=== PATIENT | female | born 1950 | race Caucasian/White ===

== ENCOUNTER 2022-03-28 15:45 | Emergency (ER) | payer MEDICARE, OTHER ==
[~2022-03-28] VITALS: Ht 172.7 cm; Wt 90.7 kg
[~2022-03-28 15:45] MED LIST: ATOR20TA PO; METO-357 PO; OMEP20CA15 PO; PREG300C PO
--- NOTE | 2022-03-28 16:10 | NUR ---
TO ER BED 9. BIB SON W/ COMPLAINT OF LOW BACK PAIN RATED 10/10, NON-RADIATING. PER SON, PATIENT TOOK VICODIN IN THE MORNING AND CURRENTLY HAS LIDOCAINE PATCH ON LOWER BACK.
--- NOTE | 2022-03-28 16:15 | NUR ---
DR. BINGHAM AT BEDSIDE W/ PATIENT.
[2022-03-28] MEDS ORDERED: CYCLOBENZAPRINE 10 MG TABLET ONE (16:26)
[2022-03-28] MEDS ORDERED: KETOROLAC TROMETHAMINE 15 MG/ML VIAL ONE (16:26)
[2022-03-28] MEDS ORDERED: CYCLOBENZAPRINE 10 MG TABLET PO ONE (16:30)
[2022-03-28] MEDS ORDERED: KETOROLAC TROMETHAMINE INJ 30 MG/ML VIAL IM ONE (16:30)
[2022-03-28] MEDS ORDERED: CARI250T PO ×2 (16:41→16:58)
[2022-03-28] MEDS ORDERED: IBUP-1955 PO ×2 (16:41→16:58)
[2022-03-28] MEDS ORDERED: METH4TAB17 PO ×2 (16:41→16:58)
--- NOTE | 2022-03-28 16:45 | NUR ---
TORADOL IM GIVEN AT RIGHT GLUTEAL MUSCLE. FLEXERIL PO GIVEN ORDERED.
[2022-03-28 16:53] VITALS: BP 120/68
--- NOTE | 2022-03-28 17:13 | NUR ---
Patient discharged to home in stable condition. Written and verbal after care instructions given. Patient verbalizes understanding of instruction.
== END 2022-03-28 17:13 | disposition home or self-care (01) ==
LOC: ER 15:49
DX: M46.1 Sacroiliitis, not elsewhere classified (principal); E78.5 Hyperlipidemia, unspecified; I10 Essential (primary) hypertension; F41.9 Anxiety disorder, unspecified; Z86.69 Personal history of other diseases of the nervous system and sense organs; Z87.19 Personal history of other diseases of the digestive system; Z79.899 Other long term (current) drug therapy
CPT/HCPCS: 96372; 99283; J1885